=== PATIENT | female | born 1950 | race Caucasian/White ===

== ENCOUNTER 2017-10-07 06:57 | Day surgery (SDC) | payer MEDICARE ==
[2017-10-07] MEDS ORDERED: Midazolam 1 MG/ML 2 ML SDV IV ONE (06:58)
[2017-10-07] MEDS ORDERED: Sodium Chloride 0.9% 10 ML Syringe IV ONE (06:58)
[2017-10-07] MEDS ORDERED: Dexamethasone 4 MG/ML SDV IV ONE (06:58)
[2017-10-07] MEDS ORDERED: Cataract Ophth Solution EYELF ONE (07:00)
[2017-10-07] MEDS ORDERED: Moxifloxacin 0.5% Ophth Soln 3 ML Bottle EYELF ONE (07:00)
[2017-10-07] MEDS ORDERED: Acetaminophen 325 MG Tab PO PRN (07:00)
[2017-10-07] MEDS ORDERED: Phenylephrine 10% Ophth Soln 5 ML Bot EYELF ONE (07:00)
[2017-10-07] MEDS ORDERED: Timolol Maleate 0.5% Ophth Soln 5 ML Bottle EYELF ONE (07:00)
[2017-10-07] MEDS ORDERED: Phenylephrine 10% Ophth Soln 5 ML Bot EYELF PRN (07:00)
[2017-10-07] MEDS ORDERED: Povidone-Iodine 5% Sterile Ophth Soln 30 ML Bottle EYELF ONE ×2 (07:00→08:16)
[2017-10-07] MEDS ORDERED: Sodium Chloride 0.9% 10 ML Syringe FLUSH PRN (07:00)
[2017-10-07] MEDS ORDERED: Proparacaine 0.5% Ophth Soln 15 ML Bottle EYELF ONE (07:00)
[2017-10-07] MEDS ORDERED: Ondansetron 4 MG/2 ML SDV IVPUSH PRN (07:00)
[2017-10-07] MEDS ORDERED: Lidocaine 1% 30 ML SDV ONE (08:16)
[2017-10-07] MEDS ORDERED: Tetracaine HCl/PF 0.5% 4 ML Bottle EYELF ONE (08:16)
[2017-10-07] MEDS ORDERED: Apraclonidine 0.5% Ophth Soln 5 ML Bot EYELF ONE (08:17)
[2017-10-07] MEDS ORDERED: Dexamethasone/Neomycin/Polymyxin B Ophth Oint 3.5 GM Tube EYELF ONE (08:18)
[2017-10-07] MEDS ORDERED: Vancomycin 500 MG SDV EYELF ONE (08:19)
[2017-10-07] MEDS ORDERED: Chondroitin Sulfate/Hyaluronate Sodium Ophth Inj 0.75 ML Syringe EYELF ONE (08:19)
[2017-10-07] MEDS ORDERED: Balanced Salt Solution Ophth Irrig 500 ML Bottle IOCULAR ONE (08:19)
--- NOTE | 2017-10-07 09:10 | OR ---
DATE: 10/07/2017 PREOPERATIVE DIAGNOSIS: Visually significant mixed cataract, left eye. POSTOPERATIVE DIAGNOSIS: Visually significant mixed cataract, left eye. PROCEDURE: Extracapsular cataract extraction with intraocular lens implant, left eye. ANESTHESIA: Topical/local MAC. COMPLICATIONS: None. INDICATION: Mrs. Padilla was seen in the clinic. She has complained of blurred vision and is unhappy with her vision. Her clinical examination reveals visually significant mixed cataract. I explained options, I offered cataract surgery, and I explained risks. She is symptomatic and requested surgery. She requested a monofocal implant. She is comfortable wearing glasses following surgery if necessary. OPERATIVE DESCRIPTION: After informed consent was obtained and the risks, benefits, and alternatives were explained, the patient was brought to the operative suite and topical anesthesia was administered. The patient was then prepped and draped in the sterile fashion and attention was placed on the left eye. A sterile lid speculum was placed into the left eye to allow operative exposure. A full-thickness paracentesis was made in the temporal portion of the operative eye. Preservative-free lidocaine 0.1 mL was injected into the anterior chamber followed by viscoelastic. A full-thickness corneal incision was then made into the anterior chamber. A bent needle cystotome was used to create a small aleksey in the anterior capsule. The capsulorrhexis forceps was then used to create a 360-degree curvilinear capsulorrhexis. The nucleus was then removed using a phacoemulsification handpiece and the remaining cortical material was then removed with irrigation and aspiration handpiece. Following removal of the cortical material, the capsular bag was then inspected and noted to be free of any holes or tears. Viscoelastic was then injected into the capsular bag and the intraocular lens was inserted into the capsular bag. The viscoelastic material was then removed from both the anterior and posterior chambers and from behind the IOL. The lens and capsular bag were then reinspected. The IOL was well centered and the capsular bag intact. The wound and paracentesis sites were inspected and hydrated with balanced saline solution. Both were found to be self- sealing. The intraocular pressure was assessed digitally and found to be within normal range. A good red reflex was noted at the completion of the procedure. No complications occurred during the operation. At the completion of the procedure, Maxitrol, Voltaren, and Iopidine drops were placed into the operative eye. A sterile eye shield was placed over the operative eye and the patient was transported to the postoperative recovery area having tolerated the procedure well. Postoperative instructions were given along with a postoperative appointment. The patient was advised to call with any questions or concerns. [facility] /[id number]
[2017-10-07 10:27] VITALS: BP 152/66
== END 2017-10-07 09:31 | disposition home or self-care (01) ==
LOC: DL.SDS 06:57
PROVIDERS: ATTEND Ophthalmology
DX: H26.9 Unspecified cataract (principal); D33.3 Benign neoplasm of cranial nerves; J30.9 Allergic rhinitis, unspecified; F32.9 Major depressive disorder, single episode, unspecified; E78.5 Hyperlipidemia, unspecified; K21.9 Gastro-esophageal reflux disease without esophagitis; I10 Essential (primary) hypertension; G43.909 Migraine, unspecified, not intractable, without status migrainosus; L40.9 Psoriasis, unspecified; J30.2 Other seasonal allergic rhinitis; Z90.89 Acquired absence of other organs; Z87.891 Personal history of nicotine dependence; Z79.899 Other long term (current) drug therapy; Z88.8 Allergy status to other drugs, medicaments and biological substances; Z88.1 Allergy status to other antibiotic agents; Z88.0 Allergy status to penicillin
CPT/HCPCS: 00142; A9270-GY; J1100; J2250; J3370; J7050; V2632

== ENCOUNTER 2017-10-14 06:54 | Day surgery (SDC) | payer MEDICARE ==
[2017-10-14] MEDS ORDERED: Sodium Chloride 0.9% 10 ML Syringe IV ONE (06:55)
[2017-10-14] MEDS ORDERED: Dexamethasone 4 MG/ML SDV IV ONE (06:55)
[2017-10-14] MEDS ORDERED: Midazolam 1 MG/ML 2 ML SDV IV ONE (06:55)
[2017-10-14] MEDS ORDERED: Tobramycin 0.3% Ophth Drops 5 ML Bottle EYERT SCH (07:00)
[2017-10-14] MEDS ORDERED: Moxifloxacin 0.5% Ophth Soln 3 ML Bottle EYERT ONE (07:00)
[2017-10-14] MEDS ORDERED: Proparacaine 0.5% Ophth Soln 15 ML Bottle EYERT ONE (07:00)
[2017-10-14] MEDS ORDERED: Povidone-Iodine 5% Sterile Ophth Soln 30 ML Bottle EYERT ONE ×2 (07:00→09:05)
[2017-10-14] MEDS ORDERED: Acetaminophen 325 MG Tab PO PRN (07:00)
[2017-10-14] MEDS ORDERED: Dilation Soln 1 EA EACH EYERT ONE (07:00)
[2017-10-14] MEDS ORDERED: Phenylephrine 10% Ophth Soln 5 ML Bot EYERT ONE (07:00)
[2017-10-14] MEDS ORDERED: Timolol Maleate 0.5% Ophth Soln 5 ML Bottle EYERT ONE (07:00)
[2017-10-14] MEDS ORDERED: Sodium Chloride 0.9% 10 ML Syringe FLUSH PRN (07:00)
[2017-10-14] MEDS ORDERED: Acetaminophen/Codeine 300-30 MG Tab PO PRN (07:00)
[2017-10-14] MEDS ORDERED: Ondansetron 4 MG/2 ML SDV IVPUSH PRN (07:00)
[2017-10-14] MEDS ORDERED: Lidocaine 1% 30 ML SDV ONE (09:05)
[2017-10-14] MEDS ORDERED: Tetracaine HCl/PF 0.5% 4 ML Bottle EYERT ONE (09:05)
[2017-10-14] MEDS ORDERED: Apraclonidine 0.5% Ophth Soln 5 ML Bot EYERT ONE (09:06)
[2017-10-14] MEDS ORDERED: Dexamethasone/Tobramycin 0.1-0.3% Ophth Oint 3.5 GM Tube EYERT ONE (09:06)
[2017-10-14] MEDS ORDERED: Chondroitin Sulfate/Hyaluronate Sodium Ophth Inj 0.75 ML Syringe EYERT ONE (09:07)
[2017-10-14] MEDS ORDERED: Balanced Salt Solution Ophth Irrig 500 ML Bottle IOCULAR ONE (09:07)
[2017-10-14] MEDS ORDERED: Vancomycin 500 MG SDV EYERT ONE (09:07)
[2017-10-14 10:09] VITALS: BP 125/54
--- NOTE | 2017-10-14 10:54 | OR ---
DATE: 10/14/2017 PREOPERATIVE DIAGNOSIS: Visually significant mixed cataract, right eye. POSTOPERATIVE DIAGNOSIS: Visually significant mixed cataract, right eye. PROCEDURE: Extracapsular cataract extraction with intraocular lens implant, right eye. ANESTHESIA: Topical/local MAC. COMPLICATIONS: None. INDICATION: Mrs. Padilla was seen in the clinic. She has complained of a slow progressive decrease in vision. Clinical examination reveals visually significant cataract. I explained options; I offered cataract surgery; and I explained risks including the potential for infection, retinal detachment, loss of vision, and need for additional surgery amongst others. We discussed implant options. She has requested a monofocal implant. OPERATIVE DESCRIPTION: After informed consent was obtained and the risks, benefits, and alternatives were explained, the patient was brought to the operative suite and topical anesthesia was administered. The patient was then prepped and draped in the sterile fashion, and attention was placed on the right eye. A sterile lid speculum was placed into the right eye to allow operative exposure. A full-thickness paracentesis was made in the temporal portion of the operative eye. Preservative-free lidocaine 0.1 mL was injected into the anterior chamber followed by viscoelastic. A full-thickness corneal incision was then made into the anterior chamber. A bent needle cystotome was used to create a small aleksey in the anterior capsule. The capsulorrhexis forceps was then used to create a 360-degree curvilinear capsulorrhexis. The nucleus was then removed using a phacoemulsification handpiece, and the remaining cortical material was then removed with irrigation and aspiration handpiece. Following removal of the cortical material, the capsular bag was then inspected and noted to be free of any holes or tears. Viscoelastic was then injected into the capsular bag, and the intraocular lens was inserted into the capsular bag. The viscoelastic material was then removed from both the anterior and posterior chambers and from behind the IOL. The lens and capsular bag were then reinspected. The IOL was well centered and the capsular bag intact. The wound and paracentesis sites were inspected and hydrated with balanced saline solution. Both were found to be self-sealing. The intraocular pressure was assessed digitally and found to be within normal range. A good red reflex was noted at the completion of the procedure. No complications occurred during the operation. At the completion of the procedure, Maxitrol, Voltaren, and Iopidine drops were placed into the operative eye. A sterile eye shield was placed over the operative eye, and the patient was transported to the postoperative recovery area having tolerated the procedure well. Postoperative instructions were given along with a postoperative appointment. The patient was advised to call with any questions or concerns. [facility] /[id number]
== END 2017-10-14 10:00 | disposition home or self-care (01) ==
LOC: DL.SDS 06:54
PROVIDERS: ATTEND Ophthalmology
DX: H25.811 Combined forms of age-related cataract, right eye (principal); I10 Essential (primary) hypertension; E78.5 Hyperlipidemia, unspecified; K21.9 Gastro-esophageal reflux disease without esophagitis; F32.9 Major depressive disorder, single episode, unspecified; Z87.891 Personal history of nicotine dependence; Z79.899 Other long term (current) drug therapy; Z88.8 Allergy status to other drugs, medicaments and biological substances; Z88.1 Allergy status to other antibiotic agents; Z88.0 Allergy status to penicillin
CPT/HCPCS: 00140; 66984; A9270; J1100; J2250; J3370; J7050; V2632

== ENCOUNTER 2020-04-26 14:20 | Emergency (ER) | payer MEDICARE, OTHER ==
[2020-04-26 14:47] VITALS: BP 169/89; PULSE 72
--- NOTE | 2020-04-26 15:21 | EDM.PDOC ---
ED HPI GENERAL MEDICAL PROBLEM - General Chief Complaint: ENT Problem Stated Complaint: BLOODY NOSE Time Seen by Provider: 04/26/20 14:55 Source of Information: Reports: Patient, RN, RN Notes Reviewed History Limitations: Reports: No Limitations - History of Present Illness INITIAL COMMENTS - FREE TEXT/NARRATIVE: Patient presents to the ED via personal vehicle with complaints of epistaxis. She is not actively bleeding, but notes she experienced a nose bleed from the left nare about 20 minutes prior to arrival to the ED. She states she has a history of a wisdom tooth within the left maxillary sinus for which she has been following with ENT. Per Dr. Ruiz, she is not a surgical candidate for extraction of this tooth as she has a history of a brain tumor excision with sku ll plating. She reports she has been told by Dr. Ruiz she will continue to experience periodic epistaxis. The patient states she has experienced daily nose bleeds over the last five days; she is worried she is losing too much blood. She denies fever, shaking chills, recent illness, headache, vision changes, dizziness, cough, sore throat, or ear pain/pressure/drainage. She does attest to left maxillary sinus pain/pressure and bilateral frontal sinus pain/pressure. She is takes daily Flonase and reports sleeping in a humidified environment. She does report she does not like to "pinch off" her nose bleeds as this forms a clot which feels uncomfortable in her nose. She is not on blood thinners. - Related Data Allergies Allergy/AdvReac Type Severity Reaction Status Date / Time erythromycin base Allergy UNKNOWN Verified 10/14/17 07:12 [Erythromycin Base] meperidine HCl [From Demerol] Allergy Rash Verified 10/14/17 07:12 Penicillins Allergy Rash Verified 10/14/17 07:12 Xbhheul-Isv-Xri Reductase Allergy Other Verified 10/14/17 07:12 Inhibitor sulfamethoxazole Allergy UNKNOWN Verified 10/14/17 07:12 [From Bactrim] trimethoprim [From Bactrim] Allergy UNKNOWN Verified 10/14/17 07:12 levofloxacin [From Levaquin] AdvReac Dizziness Verified 10/14/17 07:12 ees Allergy Rash Uncoded 10/14/17 07:12 Home Meds: Home Meds SUMAtriptan succinate [Imitrex] 50 mg PO ASDIRECTED PRN 06/30/13 [History] atenoloL [Tenormin] 25 mg PO DAILY 06/30/13 [History] Simvastatin 20 - 40 mg PO BEDTIME 01/10/15 [History] Acetaminophen 325 - 650 mg PO ASDIRECTED PRN 10/05/17 [History] Ascorbic Acid [Vitamin C] 500 mg PO DAILY 10/05/17 [History] Calcium Carbonate/Vitamin D3 [Calcium 600 + Vit D 200] 1 tab PO BID 10/05/17 [History] Cranberry 500 mg PO DAILY 10/05/17 [History] Folic Acid 1 mg PO DAILY 10/05/17 [History] Omeprazole 20 mg PO DAILY 10/05/17 [History] Potassium Chloride [Klor-Con 10] 10 meq PO DAILY 10/05/17 [History] polyethylene glycoL 3350 [Miralax] 17 gm PO .QOD 10/05/17 [History] Multivitamin with Minerals [Multiple Vitamin] 1 tab PO DAILY 10/06/17 [History] Past Medical History HEENT History: Reports: Cataract, Hard of Hearing, Impaired Vision Other HEENT History: 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 WEARS CORRECTIVE LENS. WEARS TOP DENTURE PLATE. 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 some acute vertigo when walking on occassion due to brain tumor surgery Psychiatric History: Reports: Depression Endocrine/Metabolic History: Reports: None Hematologic History: Reports: Blood Transfusion(s) Immunologic History: Reports: None Other Oncologic History: hx of a tumor right behind left ear Dermatologic History: Reports: None - Infectious Disease History Infectious Disease History: Reports: Chicken Pox, Measles, Mumps - Past Surgical History Head Surgeries/Procedures: Reports: None HEENT Surgical History: Reports: Cataract Surgery, Oral Surgery Cardiovascular Surgical History: Reports: None Respiratory Surgical History: Reports: None GI Surgical History: Reports: Appendectomy Female Surgical History: Reports: Breast Biopsy, Lithotripsy/ESWL, Mastectomy, Other (See Below) Endocrine Surgical History: Reports: None Neurological Surgical History: Reports: None Musculoskeletal Surgical History: Reports: None Other Oncologic Surgeries/Procedures: benign Dermatological Surgical History: Reports: None Social & Family History - Family History Family Medical History: No Pertinent Family History - Tobacco Use Tobacco Use Status *Q: Never Tobacco User Second Hand Smoke Exposure: No - Caffeine Use Caffeine Use: Reports: None - Recreational Drug Use Recreational Drug Use: No ED ROS ENT - Review of Systems Review Of Systems: Comprehensive ROS is negative, except as noted in HPI. ED EXAM, ENT - Physical Exam Exam: See Below Exam Limited By: No Limitations General Appearance: Alert, WD/WN, No Apparent Distress Eye Exam: Bilateral Eye: EOMI, Normal Inspection, PERRL Ears: Normal External Exam, Normal Canal, Hearing Grossly Normal, Normal TMs Nose: Nasal Tenderness (Left maxillary sinus tenderness), Dried Blood, Injected Turbinates (On the left). No: Nasal Swelling, Foreign Body, Septal Deformity, Septal Hematoma, Septal Perforation, Active Bleeding Mouth/Throat: Normal Inspection, Normal Gums, Normal Lips, Normal Oropharynx, Normal Teeth. No: Dental Tenderness, Dry Mucous Membrane Head: Atraumatic, Normocephalic Neck: Normal Inspection, Supple, Non-Tender, Full Range of Motion. No: Lymphadenopathy (L), Lymphadenopathy (R) Respiratory/Chest: No Respiratory Distress, Lungs Clear, Normal Breath Sounds, No Accessory Muscle Use, Chest Non-Tender Cardiovascular: Normal Peripheral Pulses, Regular Rate, Rhythm, No Edema, No Gallop, No JVD, No Murmur, No Rub Neurological: Alert, Oriented, CN II-XII Intact, Normal Cognition, Normal Gait, No Motor/Sensory Deficits Skin: Warm, Dry, Intact, Normal Color, No Rash Course - Vital Signs Last Recorded V/S: Last Vital Signs Temp 96.2 F L 04/26/20 14:37 Pulse 72 04/26/20 14:37 Resp 16 04/26/20 14:37 BP 169/89 H 04/26/20 14:37 Pulse Ox 96 04/26/20 14:37 - Re-Assessments/Exams Free Text/Narrative Re-Assessment/Exam: 04/26/20 Patient is not actively bleeding at this time. Discussed proper management of active nose bleeds, including pressure to the nose and avoiding removal of the clot. Discussed use of Vaseline in both nares. Will treat empirically for sinusitis with Augmentin. Patient verbalized understanding and agreement with the plan of care. Departure - Departure Time of Disposition: 15:21 Disposition: Home, Self-Care 01 Condition: Good Clinical Impression: Epistaxis, Sinusitis, maxillary, chronic - Discharge Information *PRESCRIPTION DRUG MONITORING PROGRAM REVIEWED*: Not Applicable *COPY OF PRESCRIPTION DRUG MONITORING REPORT IN PATIENT [place]: Not Applicable Instructions: Sinusitis, Adult, [id number] Forms: ED Department Discharge Additional Instructions: Rx: Augmentin 875/125mg 1.) Apply Vaseline to both nares daily while dryness persists in the environment. 2.) Apply pressure to nostrils with active nosebleed. 3.) DO NOT remove blood clots from the nose. 4.) Follow up with primary care provider regarding ongoing management of nose bleeds. Sepsis Event Note (ED) - Evaluation Sepsis Screening Result: No Definite Risk
== END 2020-04-26 15:41 | disposition home or self-care (01) ==
LOC: DL.ED 14:20
DX: R04.0 Epistaxis (principal); J32.0 Chronic maxillary sinusitis; E78.00 Pure hypercholesterolemia, unspecified; I10 Essential (primary) hypertension; Z88.1 Allergy status to other antibiotic agents; Z88.5 Allergy status to narcotic agent; Z88.0 Allergy status to penicillin; Z88.2 Allergy status to sulfonamides; Z79.899 Other long term (current) drug therapy
CPT/HCPCS: 99283

== ENCOUNTER 2023-09-16 18:33 | Emergency (ER) | payer MEDICARE, OTHER ==
[2023-09-16 19:15] LABS: BASOPHILS PERCENT AUTO 0.3 % (0.0-1.0); EOSINOPHILS PERCENT AUTO 7.5 % (1.0-3.0); HEMATOCRIT 35.3 % (37.0-47.0); HEMOGLOBIN 11.3 g/dL (12.0-16.0); LYMPHOCYTES PERCENT AUTO 38.7 % (20.5-50.1); MEAN CORPUSCULAR HEMOGLOBIN 30.1 pg (27.0-34.0); MEAN CORPUSCULAR VOLUME 93.9 fL (80-100); MONOCYTES PERCENT AUTO 10.5 % (2-8); PLATELET COUNT,PLT 289 10^3/uL (150-450); RED BLOOD CELL COUNT 3.76 10^6/uL (4.2-5.4); WHITE BLOOD CELL COUNT,WBC 6.7 10^3/uL (5.0-10.0)
[2023-09-16 19:35] LABS: A/G RATIO 1.1; ALBUMIN 3.6 g/dL (3.4-5.0); ANION GAP 12.3 mEq/L (7-13); BILIRUBIN TOTAL 0.2 mg/dL (0.2-1.0); BUN/CREATININE RATIO 16.3 (No establ ref range); CALCIUM 9.3 mg/dL (8.5-10.1); CREATININE 0.98 mg/dL (0.55-1.02); EST CRCL DRUG DOSING (CG) 42.54 mL/min; POTASSIUM,K 3.3 mmol/L (3.5-5.1); PROTEIN TOTAL,TP 6.9 g/dL (6.4-8.2)
[2023-09-16 19:58] VITALS: BP 174/89; PULSE 70
[2023-09-16] MEDS: Furosemide 20 MG Tab PO ONE (20:13)
== END 2023-09-16 20:19 | disposition home or self-care (01) ==
LOC: DL.ED 18:33
DX: R60.0 Localized edema (principal); I10 Essential (primary) hypertension; E78.00 Pure hypercholesterolemia, unspecified; Z88.1 Allergy status to other antibiotic agents; Z88.6 Allergy status to analgesic agent; Z88.2 Allergy status to sulfonamides; Z79.899 Other long term (current) drug therapy
CPT/HCPCS: 36415; 80053; 85025; 99284; A9270